=== PATIENT | male | born 1975 | race Caucasian/White ===

== ENCOUNTER 2022-01-03 11:57 | Emergency (ER) | payer SELFPAY ==
--- OUTSIDE RECORDS SUMMARY | 2022-01-03 12:00 | XMS REPORT | Continuity of Care Document ---
:1975 Author Organization [facility] t Address [address] [place] [address] Care Team Providers Name Role Phone PCP, PATIENT DOES NOT HAVE A Primary Care Physician Unavaila MAMADOU Bergman Attending Clinician Unavailable Mamadou Lawler Attending Clinician Delores Batista Attending Clinician Doctor Unassigned, [place] Attending Clinician Unavailable MAMADOU HORNER Admitting Clinician Unavailable Problems Condition Condition Condition Status Onset Resolution Last Treating Co mments Source Name Details Category Date Date Treatment Clinician Date No known No known Disease Unive rs active active ity of problems problems [place] [facility] Allergies, Adverse Reactions, Alerts Allergy Allergy Status Severity Reaction(s) Onset Inactive Treating Comm ents Source Name Type Date Date Clinician Nsaids Propensi Active Hives 2017-04 Ibuprofen Unive rs (Non-Raf ty to 2-11 and Aleve ity o f roidal adverse 00:00: [place] Anti-Inf reaction 00 Medica l lammator s Branch y Drug) NSAIDS Drug Active Hives 2017-04 Univers (NON-RAF Class 2-11 ity of ROIDAL 00:00: [place] ANTI-INF 00 Medical 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 SARS-CoV-2 (event) 00:00:00 17:49:00 Medica l [place] Sex Assigned [birth year] [facility] 00:00:00 00:00:00 Medical Branch Smoking Status Start Date Stop Date Source Unknown if ever smoked [facility] Medications Ordered Filled Start Stop Current Ordering Indication Dosage Frequency Signature Comments Components Source Medication Medication Date Date Medication? Clinician (SIG) Name Name HYDROcodone 2021- No 1{tbl} 1 tablet, Univers -acetaminop 08-17 Oral, ity of hen (NORCO 00:30: 23:45 ONCE, 1 Tone as 5) 5-325 mg 00 :00 dose, On Medi amisha tablet 1 Juli[place] Branch tablet 08/16/21 at 1930, ZAHEER cyclobenzap 2019- 2020- No 10mg 10 mg, Uni vers rine 06-20 Oral, ity of (FLEXERIL) 21:15: 20:13 ONCE, 1 Tone as tablet 10 00 :00 dose, Sun Medic al mg 06/20/19 at Branch 1515, Routine ketorolac 2019-2019- No 60mg 60 mg, Unive rs (TORADOL) 06-20 Intramuscu ity of injection 21:15: 21:15 lar, ONCE, [place] 60 mg 00 :00 1 dose, Medical [place] [facility] 06/20/19 at 1515, ZAHEER
Fa culty member approving Restricted medication : Delores LARA cyclobenzap 2020-0 Yes [id number] 10mg Take 1 Univers rine 10 mg 2-23 tablet by ity of tablet 00:00: mouth 3 [place] 00 (three) Medical times Branch daily. ibuprofen 2020-0 Yes [id number] 600mg Take 1 Univers 600 mg 2-23 tablet by ity of tablet 00:00: mouth [place] 00 every 6 Medical (six) Branch hours as needed for Pain (scale 4-6). cyclobenzap 2020-0 Yes [id number] 10mg Take 1 Univers rine 10 mg 2-23 tablet by ity of tablet 00:00: mouth 3 00 (three) Medical times Branch daily. ibuprofen 2019- Yes [id number] 600mg Take 1 Univers 600 mg 2-23 tablet by ity of tablet 00:00: mouth [place] 00 every 6 Medical (six) Branch hours as needed for Pain (scale 4-6). doxycycline 2018- Yes [id number] 100mg Take 1 Univers 100 mg 4-05 capsule by ity of capsule 00:00: mouth 2 (two) Medical times Branch daily. predniSONE 2018- Yes [id number] 60 mg days Univers 20 mg 4-05 1 -3, 40 ity of tablet 00:00: mg days 00 4-5 , 20 Medical mg day 6 Branch doxycycline 2018- Yes [id number] 100mg Take 1 Univers 100 mg 4-05 capsule by ity of capsule 00:00: mouth 2 (two) Medical times Branch daily. predniSONE Yes [id number] 60 mg days Univers 20 mg 4-05 1 -3, 40 ity of tablet 00:00: mg days 00 4-5 , 20 Medical mg day 6 Branch doxycycline Yes [id number] 100mg Take 1 Univers 100 mg 4-05 capsule by ity of capsule 00:00: mouth 2 [place] (two) Medical times Branch daily. predniSONE Yes [id number] 60 mg days Univers 20 mg 4-05 1 -3, 40 ity of tablet 00:00: mg days 00 4-5 , 20 Medical mg day 6 Branch Vital Signs Vital Name Observation Time Observation Value Comments Source Systolic blood 2021-08-16 22:48:00 144 mm[Hg] [facility] Diastolic blood 2021-08-16 22:48:00 83 mm[Hg] [facility] Heart rate 2021-08-16 22:48:00 81 /min [facility] Body temperature 2021-08-16 22:48:00 37 Radha [facility] Respiratory rate 2021-08-16 22:48:00 16 /min [facility] Body height 2021-08-16 22:48:00 190.5 cm [facility] Body weight 2021-08-16 22:48:00 122.471 kg [facility] [place] [facility] BMI 2021-08-16 22:48:00 33.75 kg/m2 [facility] [place] [facility] Oxygen saturation in 2021-08-16 22:48:00 100 /min University of Arterial blood by [facility] Pulse oximetry Branch Systolic blood 2019-06-20 19:03:00 150 mm[Hg] Univer sity of pressure [place] [facility] Diastolic blood 2019-06-20 19:03:00 96 mm[Hg] Unive rsity of pressure [place] [facility] Heart rate 2019-06-20 19:03:00 99 /min [facility] [place] [facility] [place] Body temperature 2019-06-20 19:03:00 36.78 Radha Univ ers[facility] Branch Respiratory rate 2019-06-20 19:03:00 18 /min Univ [facility] [place] [facility] Body height 2019-06-20 19:03:00 193 cm [facility] [place] [facility] Body weight 2019-06-20 19:03:00 122.471 kg [facility] [place] [facility] BMI 2019-06-20 19:03:00 32.87 kg/m2 [facility] [place] [facility] Oxygen saturation in 2019-06-20 19:03:00 96 /min University of Arterial blood by [facility] Pulse oximetry Branch Procedures Procedure Date / Time Performed Performing Clinician [facility] e XR ANKLE 3+ VW RIGHT 2021-08-17 00:00:00 Mamadou Horner [facility] XR FOOT 3+ VW RIGHT 2021-08-17 00:00:00 Mamadou Horner [facility] CONSENT/REFUSAL FOR 2021-08-16 22:43:06 Doctor Unassigned, No [facility] [place] DIAGNOSIS AND Name Medical Branch TREATMENT CONSENT/REFUSAL FOR 2019-06-20 18:59:24 Doctor Unassigned, No [facility] [place] DIAGNOSIS AND Name Medical Branch TREATMENT Encounters Start End Encounter Admission Attending Care Care Encounter Source Date/Time Date/Time Type Type Clinicians Facility Department ID 2021-08-16 2021-08-16 Emergency X DAYSI HORNER [id number] Univers 17:51:00 20:53:00 MAMADOU morris [facility] 2021-08-16 2021-08-16 Emergency [place], [facility] [id number] Univers 17:51:00 20:53:00 Mamadou B [facility] [id number] it y of [facility] [id number] [facility] [id number] [address] ([facility]) 2019-06-20 2019-06-20 Emergency Delores Lara [facility] [id number] Univers 13:08:23 14:36:00 Keya Christianson [id number] i ty of [place] [id number] [facility] [id number] [place] [id number] Branch 2019-06-20 2019-06-20 Orders Doctor CARMEN [id number] Univers 00:00:00 00:00:00 Only Unassigned, BRITTNEY [id number] ity of [place] [facility] [id number] [facility] [id number] [facility] 009 Branch Results This patient has no known results.
[2022-01-03 13:01] LABS: Absolute Lymphocytes (CBC) 2.5 K/uL (0.7-4.9); Hematocrit 43.3 % (39.6-49.0); Lymphocytes % 25.1 % (15.3-44.8); MCV 88.6 fL (80-100); MPV 7.4 fL (7.6-11.3); RBC Red Blood Cell Count 4.89 M/uL (4.33-5.43)
[2022-01-03 13:19] LABS: Albumin 3.4 g/dL (3.4-5.0); Bilirubin Total 0.2 mg/dL (0.2-1.0); Protein, Total 8.2 g/dL (6.4-8.2)
--- NOTE | 2022-01-03 13:54 | RAD REPORT ---
EXAM DESCRIPTION: RAD - Chest Single View - 01/03/2022 1:34 pm CLINICAL HISTORY: hemoptysis, cough COMPARISON: Portable June 2016 TECHNIQUE: AP portable chest image was obtained 01/03/2022 1:34 pm . FINDINGS: No large consolidation or mass. Right infrahilar markings are prominent compared to the pr ior study. A minimal medial right base pneumonia would be a consideration. There is an ill-defined 10 mm nodule lateral lower right lung field. Focal oval density in the left base is probably within the rib rather than a lung mass. Trachea is midline. No hilar mass or lymphadenopathy seen. Heart and vasculature are normal. No measu rable pleural effusion and no pneumothorax. No acute bony abnormality seen. No acute aortic findings suspected. IMPRESSION: Suspected small medial right lung base pneumonia. Ill-defined 10 mm nodule lateral lower right lung field.
--- NOTE | 2022-01-03 14:32 | RAD REPORT ---
EXAM DESCRIPTION: CT - Chest For Pe Angio - 01/03/2022 1:38 pm CLINICAL HISTORY: hemoptysis, elevated d-dimer COMPARISON: Chest Single View dated 01/03/2022; Head C Spine Cap W Con dated 07/14/2016 TECHNIQUE: Dynamically enhanced 3 mm thick images of the chest were obtained during administration o f approximately 150mL Isovue 370 IV contrast. Coronal and oblique MIP reconstruction images were gene rated and reviewed. Exam utilizes a protocol to evaluate the pulmonary arterial tree. All CT scans are performed using dose optimization technique as appropriate and may include automated exposure control or mA/KV adjustment according to patient size. FINDINGS: No pulmonary emboli are identified. The aorta as imaged shows no acute or suspicious finding. No pericardial thickening or effusion. Airspace opacification is present in the medial right lower lobe extending from the infrahilar region to the medial base. No cavitation. No endobronchial lesions identified. There is mild bronchial wall thickening and several bronchi of the right lower lobe. Medial right lower lobe pneumonia would be t he most likely etiology and needs correlation with clinical presentation. No pleural effusion or pleural thickening. Left lung field is clear. A 7 x 2 mm juxtapleural nodule is seen along the minor fissure (image 84) w ith an additional 9 x 5 mm juxtapleural nodule in the inferior aspect of the major fissure (image 86) . A 6 millimeter noncalcified nodule is present in the anterior aspect of the right middle lobe (imag e 92) along with a pleural abutting 11 millimeter nodule in the right middle lobe laterally (image 96 ) in the lateral aspect of the right lower lobe an 11 millimeter nodule is present abutting the pleur a (image 117). Patient has multiple small hilar lymph nodes and a few noncalcified, nonspecific mediastinal lymph no tameka. Given the probable right lower lobe pneumonia the mediastinal and hilar lymphadenopathy is likel y reactive. No chest wall masses or abnormal axillary lymphadenopathy. Mild bilateral gynecomastia present. IMPRESSION: Airspace opacification in the medial infrahilar right lower lobe most likely pneumonia. There is associated right lower lobe bronchial wall thickening with no endobronchial lesion. Mediastinal and hilar noncalcified lymph nodes are present and most likely reactive given the probabl e right lower lobe pneumonia. Patient has multiple right-sided pulmonary nodules up to 11 millimeter in size. The pleural abutting nodules were present and measuring approximately 9 mm in 2017. Juxtapleural nodules are probably unch anged. Malignant leg nodules would not likely shows such little growth over a greater than 5 year interval. These can be monitored with CT imaging in 6-12 months. PET-CT imaging could be performed to evaluate for any suspicious metabolic activity ; however, in the PET CT study should be delayed at least 6-8 w eeks to allow resolution of any acute infectious process.
[2022-01-03] MEDS ORDERED: CEFTRIAXONE 1000 MG/VIAL ONE (14:55)
--- NOTE | 2022-01-03 15:04 | ER ---
Nurse's Notes [facility] Name: Anuj Arnold IV Age: 46 yrs Sex: Male : 1975 Arrival Date: 01/03/2022 Time: 12:03 Bed 13 Private MD: Diagnosis: Pneumonia Presentation: 01/03 12:36 Chief complaint: Patient states: I have been coughing for a week - today it got worse ld1 and i coughed up something clear with veins in it. Now I can't stop coughing up blood. Coronavirus screen: At this time, the client does not indicate any symptoms associated with coronavirus-19. Ebola Screen: No symptoms or risks identified at this time. Initial Sepsis Screen: Does the patient meet any 2 criteria? No. Patient's initial sepsis screen is negative. Does the patient have a suspected source of infection? No. Patient's initial sepsis screen is negative. Risk Assessment: Do you want to hurt yourself or someone else? Patient reports no desire to harm self or others. Onset of symptoms was January 03, 2022. 12:36 Method Of Arrival: Ambulatory ld1 12:36 Acuity: VIKASH 3 ld1 Triage Assessment: 12:36 General: Appears in no apparent distress. comfortable, Behavior is calm, cooperative, ld1 appropriate for age. Pain: Denies pain. EENT: Reports coughing up blood. Neuro: Level of Consciousness is awake, alert, obeys commands, Oriented to person, place, time, situation. Cardiovascular: Capillary refill < 3 seconds Patient's skin is warm and dry. Respiratory: Airway is patent Respiratory effort is even, unlabored, Respiratory pattern is. GI: Abdomen is round non-distended. : No signs and/or symptoms were reported regarding the genitourinary system. Derm: No signs and/or symptoms reported regarding the dermatologic system. Historical: - Allergies: 12:32 Advil; ld1 12:32 Aleve; ld1 - Home Meds: 12:32 None [Active]; ld1 - PMHx: 12:32 None; ld1 - PSHx: 12:32 Appendectomy; ld1 - Immunization history:: Adult Immunizations up to date, Client reports having NOT received the Covid vaccine. - Social history:: Smoking status: Patient reports the use of cigarette tobacco products, smokes one pack cigarettes per day. Patient/guardian denies using alcohol. Vital Signs: 12:36 BP 140 / 96; Pulse 93; Resp 18; Temp 98.6(TE); Pulse Ox 94% on R/A; Weight 115.67 kg; ld1 Height 6 ft. 3 in. (190.50 cm); Pain 0/10; 12:36 Body Mass Index 31.87 (115.67 kg, 190.50 cm) ld1 ED Course: 12:03 Patient arrived in ED. am2 12:06 Catarino Nascimento PA is PHCP. [facility] 12:06 Michel Galaviz DO is Attending Physician. jmm 12:36 Arm band placed on right wrist. ld1 12:37 Triage completed. ld1 12:55 D-Dimer Sent. em1 12:55 CMP Sent. em1 12:55 CBC with Diff Sent. em1 12:55 Initial lab(s) drawn, by vt, sent to lab. Inserted saline lock: 20 gauge in right em1 antecubital area, using aseptic technique. Blood collected. 13:36 Chest Single View XRAY In Process Unspecified. EDMS 13:40 CT Chest For PE Angio In Process Unspecified. EDMS 14:43 Kylah Zuniga, RN is Primary Nurse. iw Administered Medications: 14:55 Drug: Rocephin (cefTRIAXone) 1 grams Route: IV; Rate: calculated rate; Site: left iw antecubital; 15:00 Follow up: IV Status: Completed infusion iw Outcome: 15:03 Discharge ordered by . [facility] 15:21 Patient left the ED. jd3 Signatures: Dispatcher [employer] EDMS Catarino Nascimento PA PA Kylah Beal, RN Rishabh Cabrera em1 Aminata Valera am2 Rey Barajas RN RN jLeti Dewitt RN RN ld1 Corrections: (The following items were deleted from the chart) 12:32 12:32 PSHx: None; ld1 ld1
--- NOTE | 2022-01-03 15:04 | EDPHYS ---
Physician Documentation [facility] Name: Anuj Arnold IV Age: 46 yrs Sex: Male : 1975 Arrival Date: 01/03/2022 Time: 12:03 Bed 13 Private MD: ED Physician Michel Galaviz HPI: 01/03 12:38 This 46 yrs old Male presents to ER via Ambulatory with complaints of Cough - blood. jmm 12:38 The patient or guardian reports cough. Onset: The symptoms/episode began/occurred jmm gradually, 5 day(s) ago. This is a 46-year-old male with no chronic medical conditions the presents emerged department with complaints of productive cough symptoms began approximately 5 days ago. Patient admits to hemoptysis. Denies shortness of breath.. Historical: - Allergies: 12:32 Advil; ld1 12:32 Aleve; ld1 - Home Meds: 12:32 None [Active]; ld1 - PMHx: 12:32 None; ld1 - PSHx: 12:32 Appendectomy; ld1 - Immunization history:: Adult Immunizations up to date, Client reports having NOT received the Covid vaccine. - Social history:: Smoking status: Patient reports the use of cigarette tobacco products, smokes one pack cigarettes per day. Patient/guardian denies using alcohol. ROS: 12:38 Constitutional: Negative for fever, chills, and weight loss, Cardiovascular: Negative jmm for chest pain, palpitations, and edema. 12:38 Respiratory: Positive for cough, shortness of breath. 12:38 All other systems are negative. Exam: 12:38 Constitutional: This is a well developed, well nourished patient who is awake, alert, jmm and in no acute distress. Head/Face: atraumatic. Eyes: EOMI, no conjunctival erythema appreciated ENT: Moist Mucus Membranes Neck: Trachea midline, Supple Chest/axilla: Normal chest wall appearance and motion. Cardiovascular: Regular rate and rhythm. No edema appreciated Respiratory: Normal respirations, no respiratory distress appreciated Abdomen/GI: Non distended Back: Normal ROM Skin: General appearance color normal MS/ Extremity: Moves all extremities, no obvious deformities appreciated, no edema noted to the lower extremities Neuro: Awake and alert Psych: Behavior is normal, Mood is normal, Patient is cooperative and pleasant Vital Signs: 12:36 BP 140 / 96; Pulse 93; Resp 18; Temp 98.6(TE); Pulse Ox 94% on R/A; Weight 115.67 kg; ld1 Height 6 ft. 3 in. (190.50 cm); Pain 0/10; 12:36 Body Mass Index 31.87 (115.67 kg, 190.50 cm) ld1 MDM: 12:38 Patient medically screened. [facility] 15:01 Data reviewed: vital signs, nurses notes. Counseling: I had a detailed discussion with kristen the patient and/or guardian regarding: the historical points, exam findings, and any diagnostic results supporting the discharge/admit diagnosis, lab results, radiology results, the need for outpatient follow up, to return to the emergency department if symptoms worsen or persist or if there are any questions or concerns that arise at home. ED course: Imaging studies revealed patient most likely has pneumonia. 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 Patient is advised to follow-up with pulmonology for reevaluation. Patient understood agrees plan of care.. 01/03 12:38 Order name: CBC with Diff; Complete Time: 13:14 [facility] 01/03 12:38 Order name: CMP; Complete Time: 13:20 [facility] 01/03 12:39 Order name: D-Dimer; Complete Time: 13:20 [facility] 01/03 12:39 Order name: Chest Single View XRAY; Complete Time: 14:02 [facility] 01/03 13:19 Order name: CT Chest For PE Angio; Complete Time: 14:33 [facility] 01/03 12:38 Order name: Saline Lock; Complete Time: 12:55 [facility] Administered Medications: 14:55 Drug: Rocephin (cefTRIAXone) 1 grams Route: IV; Rate: calculated rate; Site: left iw antecubital; 15:00 Follow up: IV Status: Completed infusion iw Disposition: 16:34 Co-signature as Attending Physician, Michel Galaviz DO I agree with the assessment and ms3 plan of care. Disposition Summary: 01/03/22 15:03 Discharge Ordered Location: Home [facility] Condition: Stable [facility] Diagnosis - Pneumonia [facility] Followup: [facility] - With: Private Physician - When: 2 - 3 days - Reason: Recheck today's complaints, Continuance of care, Re-evaluation by your physician Discharge Instructions: - Discharge Summary Sheet [facility] - Community-Acquired Pneumonia, Adult [facility] Forms: - Medication Reconciliation Form [facility] - Thank You Letter [facility] - Antibiotic Education [facility] - Prescription Opioid Use [facility] Prescriptions: - cefdinir 300 mg Oral capsule - take 1 capsule by ORAL route every 12 hours for 10 days; 20 capsule; Refills: jmm 0, Product Selection Permitted - Zithromax Z-Jairo 250 mg Oral Tablet - take 1 tablet by ORAL route as directed for 5 days Day 1 - take two (2) tablets [facility] one time. Day 2, 3, 4 , 5 take one (1) tablet once daily.; 6 tablet; Refills: 0, Product Selection Permitted Signatures: Dispatcher [employer] Catarino Wong PA PA jmm Williams, Irene, RN RN Michel Salazar DO DO ms3 Leti Rodríguez RN RN ld1 Corrections: (The following items were deleted from the chart) 12:32 12:32 PSHx: None; ld1 ld1
[2022-01-03 16:36] VITALS: BP 140/96; TEMP 98.6; O2SAT 94
== END 2022-01-03 15:21 | disposition home or self-care (01) ==
LOC: ER 11:57
DX: J18.9 Pneumonia, unspecified organism (principal); F17.210 Nicotine dependence, cigarettes, uncomplicated
CPT/HCPCS: 36415; 71045; 71275; 80053; 85025; 85379; 96374; 99284; Q9967

== ENCOUNTER 2022-12-25 09:34 | Emergency (ER) | payer SELFPAY ==
--- OUTSIDE RECORDS SUMMARY | 2022-12-25 09:36 | XMS REPORT | Continuity of Care Document ---
:1975 Author Organization [facility] t Address [address] [place] [address] Care Team Providers Name Role Phone PCP, PATIENT DOES NOT HAVE A Primary Care Physician Unavaila MAMADOU Bergman Attending Clinician Unavailable Mamadou Lawler Attending Clinician Delores Batista Attending Clinician Doctor Unassigned, Rives Attending Clinician Unavailable MAMADOU HORNER Admitting Clinician Unavailable Problems Condition Condition Condition Status Onset Resolution Last Treating Co mments Source Name Details Category Date Date Treatment Clinician Date No known No known Disease Unive rs active active ity of problems problems [facility] Allergies, Adverse Reactions, Alerts Allergy Allergy Status [...] Source Exposure to 2021-08-06 2021-08-16 Not sure [facility] SARS-CoV-2 (event) 00:00:00 17:49:00 [facility] Sex Assigned At [birth year] [facility] 00:00:00 00:00:00 Medical Branch Smoking Status Start Date Stop Date Source Unknown if ever smoked [facility] Medications Ordered Filled Start Stop Current Ordering Indication Dosage Frequency Signature Comments Components Source Medication Medication Date Date Medication? Clinician (SIG) Name Name HYDROcodone No 1{tbl} 1 tablet, Univers -acetaminop 08-17 Oral, ity of hen (NORCO 00:30: 23:45 ONCE, 1 Tone as 5) 5-325 mg 00 :00 dose, On Medi amisha tablet Julieta Branch tablet 08/16/21 at 1930, ZAHEER cyclobenzap 2019-0 2020- No 10mg 10 mg, Uni vers rine 06-20 Oral, ity of (FLEXERIL) 21:15: 20:13 ONCE, 1 Tone as tablet 10 00 :00 dose, Sun Medic al mg 06/20/19 at Branch 1515, Routine ketorolac 2020- No 60mg 60 mg, Unive rs (TORADOL) 06-20 Intramuscu ity of injection 21:15: 21:15 lar, ONCE, [place] 60 mg 00 :00 1 dose, Medical Sun Branch 06/20/19 at 1515, ZAHEER
Fa culty member approving Restricted medication : Delores LARA cyclobenzap 2020-0 Yes [id number] 10mg Take 1 Univers rine 10 mg 2-23 tablet by ity of tablet 00:00: mouth 3 [place] 00 (three) Medical times Branch daily. ibuprofen 2020-0 Yes [id number] 600mg Take 1 Univers 600 mg 2-23 tablet by ity of tablet 00:00: mouth [place] 00 every 6 Medical (six) Branch hours as needed for Pain (scale 4-6). cyclobenzap 2020-0 Yes [id number] 10mg Take 1 Univers rine 10 mg 2-23 tablet by ity of tablet 00:00: mouth 3 00 (three) Medical times Branch daily. ibuprofen 2019-0 Yes [id number] 600mg Take 1 Univers 600 mg 2-23 tablet by ity of tablet 00:00: mouth [place] 00 every 6 Medical (six) Branch hours as needed for Pain (scale 4-6). doxycycline 2018- Yes [id number] 100mg Take 1 Univers 100 mg 4-05 capsule by ity of capsule 00:00: mouth 2 00 (two) Medical times Branch daily. predniSONE 2018- Yes [id number] 60 mg days Univers 20 mg 4-05 1 -3, 40 ity of tablet 00:00: mg days 00 4-5 , 20 Medical mg day 6 Branch doxycycline 2018- Yes [id number] 100mg Take 1 Univers 100 mg 4-05 capsule by ity of capsule 00:00: mouth 2 (two) Medical times Branch daily. predniSONE Yes [id number] 60 mg days Univers 20 mg 4-05 1 -3, 40 ity of tablet 00:00: mg days 00 4-5 , 20 Medical mg day 6 Branch doxycycline 2018- Yes [id number] 100mg Take 1 Univers 100 mg 4-05 capsule by ity of capsule 00:00: mouth 2 (two) Medical times Branch daily. predniSONE Yes [id number] 60 mg days Univers 20 mg 4-05 1 -3, 40 ity of tablet 00:00: mg days 00 4-5 , 20 Medical mg day 6 Branch Vital Signs Vital Name Observation Time Observation Value Comments Source Systolic blood 2021-08-16 22:48:00 144 mm[facility]Hg[facility] Diastolic blood 2021-08-16 22:48:00 83 mm[Hg[facility] Heart rate 2021-08-16 22:48:00 81 /min [facility] Body temperature 2021-08-16 22:48:00 37 Radha [facility] Respiratory rate 2021-08-16 22:48:00 16 /min [facility] Body height 2021-08-16 22:48:00 190.5 cm [facility] Branch Body weight 2021-08-16 22:48:00 122.471 kg [facility] [place] [facility] BMI 2021-08-16 22:48:00 33.75 kg/m2 [facility] [place] [facility] Oxygen saturation in 2021-08-16 22:48:00 100 /min University of Arterial blood by [facility] Pulse oximetry Branch Systolic blood 2019-06-20 19:03:00 150 mm[Hg] Univer sity of pressure [facility] Diastolic blood 2019-06-20 19:03:00 96 mm[Hg] Unive rsity of pressure [facility] Heart rate 2019-06-20 19:03:00 99 /min [facility] Body temperature 2019-06-20 19:03:00 36.78 Radha [facility] Respiratory rate 2019-06-20 19:03:00 18 /min [facility] Body height 2019-06-20 19:03:00 193 cm [facility] Body weight 2019-06-20 19:03:00 122.471 kg [facility] BMI 2019-06-20 19:03:00 32.87 kg/m2 [facility] Oxygen saturation in 2019-06-20 19:03:00 96 /min University of Arterial blood by [facility] Pulse oximetry Branch Procedures Procedure Date / Time Performed Performing Clinician [facility] e XR ANKLE 3+ VW RIGHT 2021-08-17 00:00:00 Mamadou Horner [facility] XR FOOT 3+ VW RIGHT 2021-08-17 00:00:00 Mamadou Horner [facility] CONSENT/REFUSAL FOR 2021-08-16 22:43:06 Doctor Unassigned, No [facility] [place] DI[facility] AND Name Medical Branch TREATMENT CONSENT/REFUSAL FOR 2019-06-20 18:59:24 Doctor Unassigned, No [facility] [place] DIAGNOSIS AND Name Medical Branch TREATMENT Encounters Start End Encounter Admission Attending Care Care Encounter Source Date/Time Date/Time Type Type Clinicians Facility Department ID 2021-08-16 2021-08-16 Emergency X DAYSI HORNER ERT [id number] Univers 17:51:00 20:53:00 MAMADOU morris of [facility] 2021-08-16 2021-08-16 Emergency Brayden, [facility] [id number] Univers 17:51:00 20:53:00 Mamadou B HEALTH [id number] it y of [facility] [id number] [facility] [phone] [address] ([facility]) 2019-06-20 2019-06-20 Emergency Abby Delores [facility] [id number] Univers 13:08:23 14:36:00 [place] [id number] i ty of [place] [id number] [facility] [id number] [place] [address] Branch 2019-06-20 2019-06-20 Orders Doctor CARMEN [id number] Univers 00:00:00 00:00:00 Only Unassigned, BRITTNEY [id number] ity of Rives [facility] [id number] [facility] [id number] [facility] 009 Branch Results This patient has no known results.
[2022-12-25] MEDS ORDERED: LIDOCAINE 4% PATCH ONE (10:09)
[2022-12-25] MEDS ORDERED: dexAMETHasone 10 MG/ML VIAL ONE (10:09)
--- NOTE | 2022-12-25 10:54 | RAD REPORT ---
EXAM DESCRIPTION: RAD - Pelvis - 12/25/2022 10:28 am CLINICAL HISTORY: fall COMPARISON: Hip In Or dated 07/14/2016; Hip Left 2 View dated 12/25/2022 TECHNIQUE: Single AP view of the pelvis. FINDINGS: The visualized pelvic ring is intact. No suspicious osseous lesions. Left femoral neck fix ation hardware in place. Mild left hip joint degenerative changes with marginal femoral head spurring . No erosions of the hip joints. Other pelvic joints are unremarkable. Visualized aspects of the abdo men and soft tissues are unremarkable. IMPRESSION: No acute osseous abnormality of the bony pelvis. Mild degenerative changes of the left hip.
--- NOTE | 2022-12-25 10:55 | RAD REPORT ---
EXAM DESCRIPTION: RAD - Hip Left 2 View - 12/25/2022 10:28 am CLINICAL HISTORY: PAIN COMPARISON: Hip Left 2 View dated 07/14/2016 TECHNIQUE: Left hip, AP and frogleg views of the left hip. FINDINGS: Left femoral neck fixation hardware with a left femoral intramedullary alex. Some heterotop ic ossification adjacent to the greater and lesser trochanters. There is no fracture or dislocation. No acute or destructive bony process seen. IMPRESSION: No acute findings of the left hip.
--- NOTE | 2022-12-25 10:56 | RAD REPORT ---
EXAM DESCRIPTION: RAD - Lumbar Spine 3 Views - 12/25/2022 10:28 am CLINICAL HISTORY: PAIN COMPARISON: No comparisons TECHNIQUE: Lumbar spine, 3 views. FINDINGS: Lumbar vertebral bodies are normal in height and alignment. No fracture or acute bony proc ess seen. Czug-gi-zdqvezmd facet degenerative changes at L4-5 and L5-S1. Mild disc height loss with d isc vacuum phenomenon and L5-S1. No other significant findings. IMPRESSION: No acute osseus abnormality. Degenerative changes as above. .
--- NOTE | 2022-12-25 11:21 | EDPHYS ---
Physician Documentation [facility] Name: Anuj Arnold IV Age: 47 yrs Sex: Male : 1975 Arrival Date: 12/25/2022 Time: 09:34 Bed 5 Private MD: ED Physician Michel Galaviz HPI: 12/25 10:00 This 47 yrs old Male presents to ER via Ambulatory with complaints of Fall Injury, Back cp Pain. 10:00 The patient presents with pain that is acute. The symptoms are located in the low back. cp Onset: The symptoms/episode began/occurred yesterday. 10:00 Associated signs and symptoms: Pertinent positives: left hip pain. cp 10:00 Patient reports slip and fall onto left hip last night. Now having low back back and cp left hip pain. Historical: - Allergies: 09:46 Advil; hb 09:46 Aleve; hb - PSHx: 09:46 Appendectomy; Hip - Left; hb - Immunization history:: Adult Immunizations up to date. - Social history:: Smoking status: Patient reports the use of cigarette tobacco products, smokes one pack cigarettes per day. ROS: 10:05 Back: Positive for pain at rest, pain with movement, of the low back. cp 10:05 MS/extremity: Positive for pain, left hip. 10:05 Constitutional: Negative for body aches, chills, fever, poor PO intake. cp 10:05 Neck: Negative for pain with movement, pain at rest, stiffness. 10:05 Cardiovascular: Negative for chest pain, edema. 10:05 Respiratory: Negative for cough, shortness of breath, wheezing. 10:05 Abdomen/GI: Negative for abdominal pain, nausea, vomiting, and diarrhea, constipation, bowel incontinence. 10:05 : Negative for urinary symptoms, flank pain, bladder incontinence, testicular pain 10:05 Neuro: Negative for altered mental status, dizziness, headache, numbness, weakness. 10:05 All other systems are negative. Exam: 10:10 Constitutional: The patient appears in no acute distress, alert, awake, non-toxic, well cp developed, well nourished, uncomfortable. 10:10 Head/Face: Normocephalic, atraumatic. cp 10:10 Eyes: Periorbital structures: appear normal, Conjunctiva: normal, no exudate, no injection, Sclera: no appreciated abnormality, Lids and lashes: appear normal. 10:10 ENT: External ear(s): are unremarkable, Nose: is normal, Mouth: Lips: moist, Oral mucosa: pink and intact, moist, Posterior pharynx: is normal, airway is patent, no erythema, no exudate. 10:10 Neck: ROM/movement: is normal, is supple, without pain, no range of motions limitations. 10:10 Chest/axilla: Inspection: normal. 10:10 Cardiovascular: Rate: normal, Rhythm: regular, Edema: is not appreciated, JVD: is not appreciated. 10:10 Respiratory: the patient does not display signs of respiratory distress, Respirations: normal, no use of accessory muscles, no retractions, labored breathing, is not present, Breath sounds: are clear throughout, no decreased breath sounds, no stridor, no wheezing. 10:10 Abdomen/GI: Inspection: abdomen appears normal, Palpation: abdomen is soft and non-tender, in all quadrants. 10:10 Back: pain, that is moderate, of the lumbar area and low back area, ROM is painful, with all movement, Straight leg raises: of both lower extremities does not illicit pain. 10:10 Musculoskeletal/extremity: Extremities: noted in the left hip: pain, There is no evidence of decreased ROM, deformity. 10:10 Neuro: Orientation: to person, place \T\ time. Mentation: is normal, Motor: moves all fours, strength is normal, Sensation: is normal, Deep tendon reflexes are 2+ (normal) in the right patellar, right Achilles, left patellar and left Achilles. Vital Signs: 09:45 Temp 98.2(TE); Weight 120.2 kg; Height 6 ft. 3 in. ; Pain 10/10; hb 09:46 BP 118 / 94; Pulse 88; Resp 18; Temp 98.2; Pulse Ox 99% on R/A; ap3 11:33 BP 132 / 96; Pulse 89; Resp 18; Pulse Ox 96% on R/A; Pain 7/10; nj1 09:45 Body Mass Index 33.12 (120.20 kg, 190.5 cm) hb 09:45 Pain Scale: Adult hb 11:33 Pain Scale: Adult nj1 MDM: 09:43 Patient medically screened. cp 10:00 Differential diagnosis: Fracture ruptured disc, spinal injury, vertebral fracture, cp sciatica, cauda equina, spinal stenosis. 11:19 Data reviewed: vital signs, nurses notes, radiologic studies, plain films. I considered cp the following discharge prescriptions or medication management in the emergency department Medications were administered in the Emergency Department. See MAR. Counseling: I had a detailed discussion with the patient and/or guardian regarding the historical points, exam findings, and any diagnostic results supporting the discharge/admit diagnosis, radiology results, the need for outpatient follow up, a family practitioner, to return to the emergency department if symptoms worsen or persist or if there are any questions or concerns that arise at home. Response to treatment: the patient's symptoms have markedly improved after treatment, and as a result, I will discharge patient. 12/25 09:53 Order name: XRAY Lumbar Spine (3 Views); Complete Time: 11:17 cp 12/25 11:18 Interpretation: Report reviewed. cp 12/25 09:53 Order name: XRAY Pelvis; Complete Time: 11:17 cp 12/25 09:53 Order name: XRAY Hip LEFT 2 view; Complete Time: 11:17 cp Administered Medications: 10:03 Drug: Lidoderm Topical Patch 5 % (700 mg/patch) 1 patches Route: Topical; Site: ap3 affected area; 10:03 Drug: Dexamethasone IM 10 mg Route: IM; Site: right deltoid; ap3 11:34 Follow up: Response: No adverse reaction nj1 Disposition: 11:26 Co-signature as Attending Physician, Michel Galaviz DO I was immediately available on-site ms3 in the Emergency Department for consultation in the care of the patient. Disposition Summary: 12/25/22 11:20 Discharge Ordered Location: Home cp Problem: new cp Symptoms: have improved cp Condition: Stable cp Diagnosis - Low back pain cp - Pain in left hip cp Followup: cp - With: Private Physician - When: 2 - 3 days - Reason: Recheck today's complaints Discharge Instructions: - Discharge Summary Sheet cp - Acute Back Pain, Adult cp - Hip Pain cp - Form - Excuse from Work, School, or Physical Activity cp Forms: - Medication Reconciliation Form cp - Thank You Letter cp - Antibiotic Education cp - Prescription Opioid Use cp - Patient Portal Instructions cp - Leadership Thank You Letter cp Prescriptions: - Cyclobenzaprine 10 mg Oral Tablet - take 1 tablet by ORAL route every 8 hours As needed; 30 tablet; Refills: 0, cp Product Selection Permitted - Medrol (Jairo) 4 mg Oral Tablets, Dose Pack - take 1 tablet by ORAL route as directed - follow package instructions; 1 cp packet; Refills: 0, Product Selection Permitted Signatures: Dispatcher [employer] EDKevyn Yadav PA PA cp Baxter, Heather, RN RN Aminata Ross RN RN ap3 Michel Galaviz DO DO ms3 Carlotta De Los Santos RN nj1
--- NOTE | 2022-12-25 11:21 | ER ---
Nurse's Notes [facility] Name: Anuj Arnold IV Age: 47 yrs Sex: Male : 1975 Arrival Date: 12/25/2022 Time: 09:34 Bed 5 Private MD: Diagnosis: Low back pain;Pain in left hip Presentation: 12/25 09:45 Chief complaint: Severe low back pain that radiates to left hip after mechanical fall hb onto wood deck last night. Coronavirus screen: At this time, the client does not indicate any symptoms associated with coronavirus-19. Ebola Screen: No symptoms or risks identified at this time. Initial Sepsis Screen: Does the patient meet any 2 criteria? No. Patient's initial sepsis screen is negative. Does the patient have a suspected source of infection? No. Patient's initial sepsis screen is negative. Risk Assessment: Do you want to hurt yourself or someone else? Patient reports no desire to harm self or others. Onset of symptoms was December 23, 2022. 09:45 Method Of Arrival: Ambulatory hb 09:45 Acuity: VIKASH 3 hb Historical: - Allergies: 09:46 Advil; hb 09:46 Aleve; hb - PSHx: 09:46 Appendectomy; Hip - Left; hb - Immunization history:: Adult Immunizations up to date. - Social history:: Smoking status: Patient reports the use of cigarette tobacco products, smokes one pack cigarettes per day. Screenin:47 [facility] ED Fall Risk Assessment (Adult) History of falling in the last 3 months, ap3 including since admission Yes- single mechanical fall (1 pt) Confusion or Disorientation No (0 pts) Intoxicated or Sedated No (0 pts) Impaired Gait No (0 pts). Abuse screen: Denies threats or abuse. Nutritional screening: No deficits noted. Tuberculosis screening: No symptoms or risk factors identified. Assessment: 09:47 General: Appears uncomfortable, Behavior is calm, cooperative. Pain: Complains of pain ap3 in back and left leg Pain currently is 10 out of 10 on a pain scale. Neuro: Level of Consciousness is awake, alert, obeys commands, Oriented to person, place, time, situation, Appropriate for age. Cardiovascular: Patient's skin is warm and dry. Respiratory: Airway is patent Respiratory effort is even, unlabored, Respiratory pattern is regular, symmetrical. 11:34 Reassessment: Patient appears in no apparent distress at this time. Patient and/or nj1 family updated on plan of care and expected duration. Pain level reassessed. Patient is alert, oriented x 3, equal unlabored respirations, skin warm/dry/pink. Vital Signs: 09:45 Temp 98.2(TE); Weight 120.2 kg; Height 6 ft. 3 in. ; Pain 10/10; hb 09:46 BP 118 / 94; Pulse 88; Resp 18; Temp 98.2; Pulse Ox 99% on R/A; ap3 11:33 BP 132 / 96; Pulse 89; Resp 18; Pulse Ox 96% on R/A; Pain 7/10; nj1 09:45 Body Mass Index 33.12 (120.20 kg, 190.5 cm) hb 09:45 Pain Scale: Adult hb 11:33 Pain Scale: Adult nj ED Course: 09:36 Patient arrived in ED. mr 09:39 Kevyn Tobar PA is PHCP. cp 09:39 Michel Galaviz DO is Attending Physician. cp 09:46 Aminata Ross, GURU is Primary Nurse. ap3 09:46 Triage completed. hb 09:47 Arm band placed on. hb 09:48 Patient has correct armband on for positive identification. Bed in low position. Call ap3 light in reach. Side rails up X 1. Pulse ox on. NIBP on. 10:29 XRAY Lumbar Spine (3 Views) In Process Unspecified. EDMS 10:29 XRAY Pelvis In Process Unspecified. EDMS 10:29 XRAY Hip LEFT 2 view In Process Unspecified. EDMS 11:34 Provided Education on: discharge instructions. nj1 11:34 No provider procedures requiring assistance completed. Patient did not have IV access nj1 during this emergency room visit. Administered Medications: 10:03 Drug: Lidoderm Topical Patch 5 % (700 mg/patch) 1 patches Route: Topical; Site: ap3 affected area; 10:03 Drug: Dexamethasone IM 10 mg Route: IM; Site: right deltoid; ap3 11:34 Follow up: Response: No adverse reaction nj1 Medication: 11:34 VIS not applicable for this client. nj1 Outcome: 11:20 Discharge ordered by . cp 11:34 Discharged to home ambulatory. nj1 11:34 Condition: stable 11:34 Discharge instructions given to patient, Instructed on discharge instructions, follow up and referral plans. medication usage, Demonstrated understanding of instructions, follow-up care, medications. 11:44 Patient left the ED. nj1 Signatures: Dispatcher [employer] EDDE Missy BautistaKevyn PA PA cp Baxter, Heather, RN RN Aminata Armstrong RN RN ap3 Carlotta De Los Santos RN RN nj1
[2022-12-25 11:48] VITALS: TEMP 98.2
[2022-12-25 11:51] VITALS: BP 132/96; O2SAT 96
== END 2022-12-25 11:44 | disposition home or self-care (01) ==
LOC: ER 09:34
DX: M54.50 Low back pain, unspecified (principal); M25.552 Pain in left hip
CPT/HCPCS: 72100; 72170; J1100; J2001